=== PATIENT | female | born 1990 | race African-American/Black ===

== ENCOUNTER → 2022-08-11 | Outpatient (REF) | payer OTHER ==
[2022-08-11 22:27] LABS: APPEARANCE, URINE CLOUDY (CLEAR); BACTERIA, URINE AUTO 1+ (NEGATIVE); BILIRUBIN, URINE AUTO NEGATIVE (NEGATIVE); BLOOD, URINE BLOOD 3+ (NEGATIVE); COLOR, URINE YELLOW (YELLOW); GLUCOSE, URINE (UA) AUTO NEGATIVE (NEGATIVE); KETONE, URINE AUTO NEGATIVE (NEGATIVE); LEUKOCYTE ESTERASE, URINE AUTO 1+ (NEGATIVE); MUCUS, URINE SMALL (NEGATIVE); NITRITE, URINE AUTO NEGATIVE (NEGATIVE); PROTEIN, URINE AUTO 2+ mg/dL (NEGATIVE); RBC, URINE AUTO TNTC /HPF (0-3); SPECIFIC GRAVITY URINE AUTO 1.016 (1.002-1.035); SQUAMOUS EPITHELIAL CELL UR AU 1 /HPF (0-6); UROBILINOGEN, URINE AUTO 0.2 mg/dL (0.0-2.0); WBC, URINE AUTO 62 /HPF (0-3)
== END ==
LOC: M LAB REF 22:12
PROVIDERS: ATTEND Physician Assistant
DX: N39.0 Urinary tract infection, site not specified (principal)

== ENCOUNTER 2022-09-02 16:54 | Emergency (ER) | payer OTHER ==
[~2022-09-02] VITALS: Ht 165.1 cm; Wt 71.3 kg
[2022-09-02 17:56] LABS: BASO % 0.4 % (0.0-1.0); EOS # 0.1 10^3/uL (0.0-0.5); EOS % 1.3 % (0.0-3.0); HEMATOCRIT 35.9 % (36.0-47.0); HEMOGLOBIN 11.4 g/dl (12.0-15.5); LYMPH # 2.1 10^3/uL (1.5-5.0); LYMPH % 38.1 % (24.0-44.0); MEAN CORPUSCULAR HEMOGLOBIN 24.8 pg (27.0-33.0); MEAN CORPUSCULAR HGB CONC 31.8 g/dl (32.0-36.5); MEAN CORPUSCULAR VOLUME 78.2 fl (80.0-96.0); MONO # 0.6 10^3/uL (0.0-0.8); MONO % 10.2 % (2.0-8.0); NEUTROPHILS # 2.7 10^3/uL (1.5-8.5); NEUTROPHILS % 49.8 % (36.0-66.0); PLATELET COUNT, AUTOMATED 333 10^3/uL (150-450); RED BLOOD COUNT 4.59 10^6/uL (4.00-5.40); WHITE BLOOD COUNT 5.5 10^3/uL (4.0-10.0)
[2022-09-02 18:11] LABS: LIPASE 49 U/L (12-53)
[2022-09-02 18:14] LABS: ALBUMIN 4.3 G/DL (3.2-5.2); ALKALINE PHOSPHATASE 40 U/L (46-116); ALT/SGPT 10 U/L (7.0-40); AST/SGOT < 8 U/L (<34); BILIRUBIN,DIRECT 0.2 MG/DL (<0.4); BILIRUBIN,TOTAL 0.5 MG/DL (0.3-1.2); TOTAL PROTEIN 7.7 G/DL (5.7-8.2)
[2022-09-02 19:09] VITALS: BP 119/56; TEMP 99.1; O2SAT 100
== END 2022-09-02 20:25 | disposition home or self-care (01) ==
LOC: M ED 16:54
DX: O26.91 Pregnancy related conditions, unspecified, first trimester (principal); R10.9 Unspecified abdominal pain; Z3A.01 Less than 8 weeks gestation of pregnancy

== ENCOUNTER 2023-05-02 23:37 | Inpatient (IN) | payer OTHER ==
[~2023-05-02] VITALS: Ht 172.7 cm; Wt 99.7 kg
[2023-05-02] MEDS ORDERED: PRENTAB9 PO (23:50)
[2023-05-02] MEDS ORDERED: IRON65TA2 PO (23:50)
[2023-05-02] MEDS ORDERED: HOME MED LIST COMPLETE! XX SCH ×2 (23:55)
[2023-05-02 23:58] VITALS: BP 146/83; O2SAT 99
[2023-05-03] VITALS (19 sets, daily range): BP systolic 97–143; BP diastolic 52–80; TEMP 98.2; O2SAT 98–99
[2023-05-03] MEDS ORDERED: METHYLERGONOVINE MALEATE 0.2MG/ML 1ML VIAL IM PRN (00:15)
[2023-05-03] MEDS ORDERED: CARBOPROST TROMETHAMINE 250 MCG/ML AMP IM PRN (00:15)
[2023-05-03] MEDS ORDERED: LR 1,000 ML IV SCH (00:15)
[2023-05-03] MEDS ORDERED: OXYTOCIN INJ 10UNITS/ML 1ML VIAL IV PRN (00:15)
[2023-05-03] MEDS ORDERED: OXYTOCIN DRIP 30 UNITS in IV 1 EA IV PRN (00:15)
[2023-05-03] MEDS ORDERED: LIDOCAINE 1% MDV 20ML VIAL INFIL PRN (00:15)
[2023-05-03] MEDS ORDERED: OXYTOCIN DRIP 30 UNITS in IV 1 EA IV SCH (00:15)
[2023-05-03] MEDS ORDERED: OXYTOCIN INJ 10UNITS/ML 1ML VIAL IM PRN (00:15)
[2023-05-03] MEDS ORDERED: TRANEXAMIC ACID INJection 1,000 MG in NS 100 ML IV PRN (00:15)
[2023-05-03] MEDS: PENICILLIN G POTASSIUM 5 MU IV 5 MU in D5W MINI-BAG PLUS 100 ML IV STA (00:49)
[2023-05-03] MEDS: LACTATED RINGER'S 1000 ML IV STA (00:49)
[2023-05-03 00:52] LABS: HEMATOCRIT 35.2 % (36.0-47.0); MEAN CORPUSCULAR HEMOGLOBIN 28.9 pg (27.0-33.0); MEAN CORPUSCULAR HGB CONC 34.1 g/dl (32.0-36.5); MEAN CORPUSCULAR VOLUME 84.8 fl (80.0-96.0); PLATELET COUNT, AUTOMATED 207 10^3/uL (150-450); RED BLOOD COUNT 4.15 10^6/uL (4.00-5.40); WHITE BLOOD COUNT 8.1 10^3/uL (4.0-10.0)
[2023-05-03 01:17] LABS: ALBUMIN 3.2 G/DL (3.2-5.2); ALKALINE PHOSPHATASE 172 U/L (46-116); ALT/SGPT 15 U/L (7.0-40); AST/SGOT 27 U/L (<34); BILIRUBIN,TOTAL 0.3 MG/DL (0.3-1.2); BLOOD UREA NITROGEN 8 MG/DL (9-23); CALCIUM LEVEL 9.5 MG/DL (8.5-10.1); CARBON DIOXIDE LEVEL 21 MMOL/L (20-31); CHLORIDE LEVEL 106 MMOL/L (98-107); CREATININE FOR GFR 0.54 MG/DL (0.55-1.30); GLOMERULAR FILTRATION RATE > 60.0 (>60); GLUCOSE, FASTING 94 MG/DL (60-100); POTASSIUM SERUM 4.8 MMOL/L (3.5-5.1); SODIUM LEVEL 135 MMOL/L (136-145); TOTAL PROTEIN 6.3 G/DL (5.7-8.2)
[2023-05-03] MEDS ORDERED: LR 500 ML IV PRN (01:55)
[2023-05-03] MEDS ORDERED: ONDANSETRON 4MG 2ML VIAL IV PRN (01:55)
[2023-05-03] MEDS ORDERED: diphenhydrAMINE 50MG/ML VIAL IV PRN (01:55)
[2023-05-03] MEDS ORDERED: NALOXONE INJ 0.4MG/1ML VIAL IV PRN (01:55)
[2023-05-03] MEDS ORDERED: EPIDURAL/PCA KEYS XX PRN (01:55)
[2023-05-03] MEDS: LR 1,000 ML IV SCH (02:03)
[2023-05-03] MEDS: FENTANYL/ROPIVACAINE/NACL BAG 100 ML EPIDURAL SCH (02:30)
[2023-05-03 03:21] LABS: TOTAL PROTEIN,RANDOM URINE 12.1 MG/DL (0.0-14.0)
[2023-05-03 03:26] LABS: CREATININE,RANDOM URINE 56.1 MG/DL
[2023-05-03] MEDS: ePHEDrine SULFATE 25 MG/5 ML(5MG/ML) SYRINGE IVP PRN (04:00)
[2023-05-03] MEDS ORDERED: OXYTOCIN 30UNITS IN 0.9% NaCl 500ML IV BAG As Ordered ONE (04:47)
[2023-05-03] MEDS: PEN G POT 3,000,000 UNIT/50 ML 3,000,000 UNIT in IV 1 EA IV SCH (04:53)
[2023-05-03] MEDS: OXYTOCIN DRIP 30 UNITS in IV 1 EA IV PRN (06:02)
[2023-05-03 06:08] LABS: CORD GAS ABE A -6.6; CORD GAS HCO3 A 23.1 MMOL/L; CORD GAS O2 SAT A 31.5 %; CORD GAS PCO2 A 64.2 mmHg; CORD GAS PH A 7.173 UNITS; CORD GAS PO2 A 18.1 mmHg; CORD GAS SBC A 17.7 MMOL/L
[2023-05-03 06:10] LABS: CORD GAS ABE V -5.2; CORD GAS HCO3 V 19.5 MMOL/L; CORD GAS O2 SAT V 80.8 %; CORD GAS PCO2 V 35.7 mmHg; CORD GAS PH V 7.356 UNITS; CORD GAS PO2 V 36.6 mmHg; CORD GAS SBC V 19.9 MMOL/L; CORD GAS TCO2 V 20.6 MMOL/L
[2023-05-03] MEDS ORDERED: ANUSOL HC CREAM 30GM TOP PRN (06:30)
[2023-05-03] MEDS ORDERED: ACETAMINOPHEN 500 MG TAB PO PRN (06:30)
[2023-05-03] MEDS ORDERED: DIBUCAINE 1% OINTMENT 30GM TOP PRN (06:30)
[2023-05-03] MEDS ORDERED: MOM 30ML SUSPENSION UDC PO PRN (06:30)
[2023-05-03] MEDS: PRENATAL VITAMINS CHEWABLE TABLET PO SCH (08:25)
[2023-05-03] MEDS: DOCUSATE SODIUM 100MG CAPSULE PO SCH (08:25)
[2023-05-03] MEDS ORDERED: PRENATAL VITAMINS CHEWABLE TABLET PO SCH (09:00)
[2023-05-03] MEDS: IBUPROFEN 800 MG TAB PO PRN (13:43)
[2023-05-04 05:51] VITALS: BP 131/63; O2SAT 99
[2023-05-04 18:00] VITALS: BP 108/52; O2SAT 100
[2023-05-05 06:00] VITALS: BP 121/60; O2SAT 100
[2023-05-05] MEDS: MEASLES,MUMPS,RUBELLA VACCINE INJ (MMR-II) SC.IMMUN ONE (07:54)
[2023-05-05] MEDS: INFLUENZA QUADRIVALENT PF VACCINE 0.5ML SYRINGE IM.IMMUN ONE (09:50)
[2023-05-05 18:00] VITALS: BP 132/60; O2SAT 98
== END 2023-05-05 20:15 | disposition home or self-care (01) | DRG 807 ==
LOC: M LDO 23:37 → M LDI 05-03 00:10 → M OBS 05-03 08:53
PROVIDERS: ADMIT Obstetrics & Gynecology; ATTEND Obstetrics & Gynecology
PROC: 10E0XZZ Delivery of Products of Conception, External Approach (ICD-10-PCS; principal; 2023-05-03)
PROC: 0KQM0ZZ Repair Perineum Muscle, Open Approach (ICD-10-PCS; 2023-05-03)
DX: O99.824 Streptococcus B carrier state complicating childbirth (principal); Z37.0 Single live birth; O26.02 Excessive weight gain in pregnancy, second trimester; Z3A.39 39 weeks gestation of pregnancy; O70.1 Second degree perineal laceration during delivery